=== PATIENT | female | born 1980 | race Caucasian/White ===

== ENCOUNTER 2017-07-08 17:48 | Inpatient (IN) ==
[2017-07-08] MEDS ORDERED: ONDANSETRON 4 MG/2 ML VIAL IV PRN (17:58)
[2017-07-08] MEDS ORDERED: LACTATED RINGERS 1,000 ML IV SCH (18:00)
[2017-07-08] MEDS ORDERED: OXYTOCIN/LR 20 UNIT/1,000 ML BAG IV SCH (18:00)
[2017-07-08 18:35] LABS: Basophils # 0.1 10*3/uL (0.0-0.2); Basophils % 0.5 % (0.0-0.8); Eosinophils % 0.4 % (0.00-10.9); Hematocrit 35.5 VOL% (35.7-47.0); Hemoglobin 11.7 GM/DL (12.0-16.0); Immature Granulocytes % 0.5 %; Immature Granulocytes Absolute 0.06 #; Lymphocytes # 2.8 10*3/uL (1.4-4.0); Mean Corpuscular Hemoglobin 31 PG (27-34); Mean Corpuscular Volume 93.4 FL (87-102); Mean Platelet Volume 13.6 FL (9.6-12.0); Monocytes # 0.7 10*3/uL (0.11-0.8); Monocytes % 6.5 % (1.7-12.7); Neutrophils # 7.4 10*3/uL (1.4-7.4); Neutrophils % 67.1 % (38.7-73.9); Platelet Count 114 T/CUMM (130-400); Red Cell Distribution Width 12.2 % (9.3-17.3)
[2017-07-08] MEDS: BUTORPHANOL 2 MG/ML VIAL IV PRN (23:40)
[2017-07-09] MEDS: BUTORPHANOL 2 MG/ML VIAL IV PRN ×2 (02:12→05:18)
[2017-07-09] MEDS ORDERED: miSOPROStol 200 MCG TABLET ONE (02:15)
[2017-07-09] MEDS ORDERED: METHYLERGONOVINE 0.2 MG/1 ML AMP ONE (02:16)
[2017-07-09] MEDS ORDERED: LIDOCAINE 1% 50 ML VIAL ONE (02:16)
[2017-07-09] MEDS ORDERED: oxyCODONE/ACETAMINOPHEN 5-325 MG TABLET PO PRN ×2 (09:19)
[2017-07-09] MEDS ORDERED: BISACODYL 10 MG SUPP RECTAL PRN (09:19)
[2017-07-09] MEDS ORDERED: ONDANSETRON 4 MG/2 ML VIAL IV PRN (09:19)
[2017-07-09] MEDS ORDERED: LANOLIN 50% CREAM 0.3 OZ TUBE TOP PRN (09:19)
[2017-07-09] MEDS ORDERED: RHO(D) IMMUNE GLOBULIN 300 MCG SYRINGE IM ONE (09:19)
[2017-07-09] MEDS ORDERED: MEASLES/MUMPS/RUBELLA VACCINE 0.5 ML VIAL SUBCUT ONE (09:19)
[2017-07-09] MEDS ORDERED: DIPH/TET/ACEL PERT BOOSTER VACCINE 0.5 ML VIAL IM ONE (09:19)
[2017-07-09] MEDS ORDERED: HYDROCORTISONE 2.5% RECTAL CREAM 30 GM TUBE TOP PRN (09:19)
[2017-07-09] MEDS ORDERED: OXYTOCIN/LR 20 UNIT/1,000 ML BAG IV ONE (09:19)
[2017-07-09] MEDS ORDERED: WITCH HAZEL PADS 100/JAR TOP PRN (09:19)
[2017-07-09] MEDS ORDERED: BENZOCAINE 20%/MENTHOL 0.5% SPRAY 56 GM CAN TOP PRN (09:19)
[2017-07-09] MEDS ORDERED: ACETAMINOPHEN 325 MG TABLET PO PRN (09:19)
[2017-07-09] MEDS: IBUPROFEN 800 MG TABLET PO PRN ×2 (12:44→21:23)
[2017-07-09] MEDS: DOCUSATE SODIUM 100 MG CAPSULE PO SCH (21:24)
[2017-07-10] MEDS: IBUPROFEN 800 MG TABLET PO PRN ×2 (04:07→11:27)
[2017-07-10 06:58] LABS: Basophils # 0.1 10*3/uL (0.0-0.2); Basophils % 0.3 % (0.0-0.8); Eosinophils % 0.2 % (0.00-10.9); Hematocrit 29.2 VOL% (35.7-47.0); Hemoglobin 9.7 GM/DL (12.0-16.0); Immature Granulocytes % 0.8 %; Immature Granulocytes Absolute 0.14 #; Lymphocytes # 3.5 10*3/uL (1.4-4.0); Lymphocytes % 20.1 % (21.3-54.2); Mean Corpuscular HGB Conc 33.2 GM/DL (32-36); Mean Corpuscular Hemoglobin 31 PG (27-34); Mean Corpuscular Volume 93.3 FL (87-102); Mean Platelet Volume 13.1 FL (9.6-12.0); Monocytes # 0.9 10*3/uL (0.11-0.8); Neutrophils # 12.9 10*3/uL (1.4-7.4); Neutrophils % 73.6 % (38.7-73.9); Platelet Count 99 T/CUMM (130-400); Red Blood Count 3.13 MC/CUMM (3.8-5.5); Red Cell Distribution Width 12.6 % (9.3-17.3); White Blood Count 17.5 T/CUMM (4-12)
[2017-07-10 07:55] LABS: Lymphocytes 18 % (20-55); Microcytosis 1+; Segmented Neutrophils 77 % (50-85); Total Cells Counted 100
[2017-07-10 07:56] LABS: Polychromasia Slight
[2017-07-10] MEDS: DOCUSATE SODIUM 100 MG CAPSULE PO SCH ×2 (08:28→20:53)
[2017-07-11 07:35] VITALS: BP 128/82
[2017-07-11] MEDS: DOCUSATE SODIUM 100 MG CAPSULE PO SCH (08:40)
== END 2017-07-11 12:00 | disposition home or self-care (01) | DRG 775 ==
LOC: N.LDOUT 17:48 → N.LD 17:54 → N.OB 07-09 12:18
PROVIDERS: ADMIT Obstetrics & Gynecology; ATTEND Obstetrics & Gynecology

== ENCOUNTER 2019-04-18 01:20 | Inpatient (IN) ==
[2019-04-18] MEDS ORDERED: ONDANSETRON 4 MG/2 ML VIAL IV PRN (01:32)
[2019-04-18] MEDS ORDERED: FAMOTIDINE 20 MG/2 ML VIAL IV ONE (01:35)
[2019-04-18] MEDS ORDERED: PROMETHAZINE 25 MG/1 ML VIAL IM ONE (01:35)
[2019-04-18] MEDS ORDERED: NALOXONE 0.4 MG/ML VIAL IV PRN (01:35)
[2019-04-18] MEDS ORDERED: LACTATED RINGERS 1,000 ML IV ONE (01:35)
[2019-04-18] MEDS ORDERED: diphenhydrAMINE 50 MG/1 ML VIAL IV PRN ×2 (01:35)
[2019-04-18] MEDS ORDERED: ePHEDrine 50 MG/ML AMP IV PRN (01:35)
[2019-04-18] MEDS ORDERED: CITRIC ACID/SODIUM CITRATE 30 ML UDCUP PO ONE (01:35)
[2019-04-18] MEDS ORDERED: hydrOXYzine HCL 25 MG/1 ML VIAL IM PRN (01:35)
[2019-04-18] MEDS ORDERED: ONDANSETRON 4 MG/2 ML VIAL IV ONE (01:35)
[2019-04-18] MEDS ORDERED: CITRIC ACID/SODIUM CITRATE 30 ML UDCUP ONE (01:37)
[2019-04-18] MEDS ORDERED: fentaNYL 2 MCG/ROPIV 0.2% EPID 100 ML EPIDURAL ONE (01:37)
[2019-04-18] MEDS ORDERED: miSOPROStoL 200 MCG TABLET ONE ×2 (01:54→08:30)
[2019-04-18 01:55] LABS: Basophils % 0.3 % (0.0-0.8); Eosinophils # 0.1 10*3/uL (0.0-0.87); Eosinophils % 0.9 % (0.00-10.9); Hematocrit 30.8 VOL% (35.7-47.0); Hemoglobin 9.7 GM/DL (12.0-16.0); Immature Granulocytes % 0.6 %; Immature Granulocytes Absolute 0.07 #; Lymphocytes # 2.9 10*3/uL (1.4-4.0); Lymphocytes % 24.5 % (21.3-54.2); Mean Corpuscular HGB Conc 31.5 GM/DL (32-36); Mean Platelet Volume 12.5 FL (9.6-12.0); Monocytes % 6.4 % (1.7-12.7); Neutrophils % 67.3 % (38.7-73.9); Platelet Count 168 T/CUMM (130-400); Red Blood Count 3.46 MC/CUMM (3.8-5.5); White Blood Count 11.9 T/CUMM (4-12)
[2019-04-18] MEDS ORDERED: METHYLERGONOVINE 0.2 MG/1 ML AMP ONE ×2 (01:55→08:30)
[2019-04-18] MEDS ORDERED: CARBOPROST TROMETHAMINE 250 MCG/ML AMP IM ONE (01:55)
[2019-04-18] MEDS ORDERED: OXYTOCIN/LR 20 UNIT/1,000 ML BAG IV SCH (02:00)
[2019-04-18] MEDS ORDERED: fentaNYL 2 MCG/ROPIV 0.2% EPID 100 ML EPIDURAL SCH (02:00)
[2019-04-18] MEDS: LACTATED RINGERS 1,000 ML IV SCH ×2 (02:35→11:57)
[2019-04-18 06:36] LABS: Apearance,Urine CLEAR (Clear); Bacteria,Urine Occasional /HPF (Few); Bilirubin,Urine Negative (Negative); Blood, Urine Moderate mg/dL (Negative); Glucose,Urine (UA) Negative (Negative); Ketones,Urine Negative (Negative); Mucus,Urine Few /LPF (Occasional); Nitrite,Urine Negative (Negative); Protein,Urine Negative; RBC,Urine 22 /HPF (0-4); Squamous Epithelial Cell,Urine Occasional /HPF (0-10); Urine Color Yellow (Yellow); Urine Specific Gravity 1.021 (1.001-1.035); Urine Urobilinogen < 2.0 EU/DL (0.2-1.0); WBC,Urine <1 /HPF (0-6)
[2019-04-18] MEDS ORDERED: LIDOCAINE 1% 50 ML VIAL ONE (08:30)
[2019-04-18] MEDS ORDERED: oxyCODONE/ACETAMINOPHEN 5-325 MG TABLET PO PRN ×2 (16:17)
[2019-04-18] MEDS: IBUPROFEN 800 MG TABLET PO PRN (16:33)
[2019-04-19 06:19] LABS: Basophils % 0.3 % (0.0-0.8); Eosinophils # 0.1 10*3/uL (0.0-0.87); Eosinophils % 0.7 % (0.00-10.9); Hematocrit 29.5 VOL% (35.7-47.0); Immature Granulocytes % 0.8 %; Lymphocytes # 2.6 10*3/uL (1.4-4.0); Lymphocytes % 22.1 % (21.3-54.2); Mean Corpuscular HGB Conc 30.5 GM/DL (32-36); Mean Corpuscular Volume 90.8 FL (87-102); Mean Platelet Volume 12.4 FL (9.6-12.0); Monocytes % 4.3 % (1.7-12.7); Neutrophils % 71.8 % (38.7-73.9); Platelet Count 146 T/CUMM (130-400); Red Blood Count 3.25 MC/CUMM (3.8-5.5); Red Cell Distribution Width 13.2 % (9.3-17.3); White Blood Count 11.9 T/CUMM (4-12)
[2019-04-19] MEDS: DOCUSATE SODIUM 100 MG CAPSULE PO SCH (21:03)
[2019-04-19] MEDS: IBUPROFEN 800 MG TABLET PO PRN (23:19)
[2019-04-20 10:29] VITALS: BP 123/73
[2019-04-20] MEDS: DOCUSATE SODIUM 100 MG CAPSULE PO SCH (11:01)
== END 2019-04-20 13:50 | disposition home or self-care (01) | DRG 807 ==
LOC: N.LDOUT 01:20 → N.LD 01:21 → N.OB 11:42
PROVIDERS: ADMIT Obstetrics & Gynecology; ATTEND Obstetrics & Gynecology

== ENCOUNTER 2021-03-12 12:50 | Inpatient (IN) ==
[2021-03-12] MEDS ORDERED: ONDANSETRON 4 MG/2 ML VIAL IV PRN ×2 (13:04→20:06)
[2021-03-12] MEDS ORDERED: LACTATED RINGERS 1,000 ML IV PRN (13:04)
[2021-03-12] MEDS ORDERED: MEPERIDINE 50 MG/1 ML VIAL IM PRN (13:04)
[2021-03-12 13:22] LABS: Basophils % 0.5 % (0.0-0.8); Eosinophils # 0.1 10*3/uL (0.0-0.87); Eosinophils % 0.8 % (0.00-10.9); Hematocrit 31.4 VOL% (35.7-47.0); Hemoglobin 9.9 GM/DL (12.0-16.0); Immature Granulocytes % 0.8 %; Immature Granulocytes Absolute 0.05 #; Lymphocytes # 1.8 10*3/uL (1.4-4.0); Mean Corpuscular HGB Conc 31.5 GM/DL (32-36); Mean Platelet Volume 11.8 FL (9.6-12.0); Monocytes % 7.4 % (1.7-12.7); Neutrophils % 63.5 % (38.7-73.9); Platelet Count 153 T/CUMM (130-400); Red Blood Count 3.53 MC/CUMM (3.8-5.5); Red Cell Distribution Width 14.2 % (9.3-17.3); White Blood Count 6.5 T/CUMM (4-12)
[2021-03-12] MEDS ORDERED: OXYTOCIN/LR 20 UNIT/1,000 ML BAG IV SCH (13:30)
[2021-03-12] MEDS ORDERED: LACTATED RINGERS 1,000 ML IV SCH (13:30)
[2021-03-12] MEDS ORDERED: ePHEDrine 50 MG/ML VIAL IV PRN (13:36)
[2021-03-12] MEDS ORDERED: diphenhydrAMINE 50 MG/1 ML VIAL IV PRN ×2 (13:36)
[2021-03-12] MEDS ORDERED: NALOXONE 0.4 MG/ML VIAL IV PRN (13:36)
[2021-03-12] MEDS ORDERED: PROMETHAZINE 25 MG/1 ML VIAL IM ONE (13:36)
[2021-03-12] MEDS ORDERED: FAMOTIDINE 20 MG/2 ML VIAL IV ONE (13:36)
[2021-03-12] MEDS ORDERED: ONDANSETRON 4 MG/2 ML VIAL IV ONE (13:36)
[2021-03-12] MEDS ORDERED: hydrOXYzine HCL 25 MG/1 ML VIAL IM PRN (13:36)
[2021-03-12] MEDS ORDERED: CITRIC ACID/SODIUM CITRATE 30 ML UDCUP PO ONE (13:36)
[2021-03-12] MEDS ORDERED: fentaNYL 2 MCG/ROPIV 0.2% EPID 100 ML EPIDURAL SCH (14:00)
[2021-03-12] MEDS ORDERED: miSOPROStoL 200 MCG TABLET ONE (19:31)
[2021-03-12] MEDS ORDERED: SODIUM CHLORIDE 0.9% 0 ML IV ONE (19:32)
[2021-03-12] MEDS ORDERED: TRANEXAMIC ACID 1,000 MG/10 ML VIAL ONE (19:32)
[2021-03-12] MEDS ORDERED: OXYTOCIN/LR 20 UNIT/1,000 ML BAG IV ONE ×2 (19:32→20:06)
[2021-03-12] MEDS ORDERED: METHYLERGONOVINE 0.2 MG/1 ML AMP ONE (19:32)
[2021-03-12] MEDS ORDERED: CARBOPROST TROMETHAMINE 250 MCG/ML AMP IM ONE (19:33)
[2021-03-12] MEDS ORDERED: DIPH/TET/ACEL PERT BOOSTER VACCINE 0.5 ML VIAL IM ONE (20:06)
[2021-03-12] MEDS ORDERED: MEASLES/MUMPS/RUBELLA VACCINE 0.5 ML VIAL SUBCUT ONE (20:06)
[2021-03-12] MEDS ORDERED: BENZOCAINE 20%/MENTHOL 0.5% SPRAY 56 GM CAN TOP PRN (20:06)
[2021-03-12] MEDS ORDERED: ACETAMINOPHEN 325 MG TABLET PO PRN (20:06)
[2021-03-12] MEDS ORDERED: HYDROCORTISONE 2.5% RECTAL CREAM 30 GM TUBE TOP PRN (20:06)
[2021-03-12] MEDS ORDERED: WITCH HAZEL PADS 100/JAR TOP PRN (20:06)
[2021-03-12] MEDS ORDERED: LANOLIN 50% CREAM 0.3 OZ TUBE TOP PRN (20:06)
[2021-03-12] MEDS ORDERED: BISACODYL 10 MG SUPP RECTAL PRN (20:06)
[2021-03-12] MEDS ORDERED: RHO(D) IMMUNE GLOBULIN 300 MCG SYRINGE IM ONE (20:06)
[2021-03-12] MEDS ORDERED: oxyCODONE/ACETAMINOPHEN 5-325 MG TABLET PO PRN ×2 (20:06)
[2021-03-12 20:17] LABS: Cord Venous Blood HCO3 23.6 MMOL/L; Cord Venous Blood PCO2 42.5 MMHG; Cord Venous Blood PO2 20.8
[2021-03-12] MEDS: DOCUSATE SODIUM 100 MG CAPSULE PO SCH (22:33)
[2021-03-13] MEDS: IBUPROFEN 800 MG TABLET PO PRN ×3 (03:24→15:01)
[2021-03-13 05:27] LABS: Basophils % 0.2 % (0.0-0.8); Eosinophils % 0.4 % (0.00-10.9); Hematocrit 28.8 VOL% (35.7-47.0); Immature Granulocytes % 0.7 %; Immature Granulocytes Absolute 0.08 #; Lymphocytes # 1.7 10*3/uL (1.4-4.0); Lymphocytes % 14.8 % (21.3-54.2); Mean Corpuscular HGB Conc 31.3 GM/DL (32-36); Mean Corpuscular Volume 89.2 FL (87-102); Mean Platelet Volume 12.5 FL (9.6-12.0); Monocytes % 5.6 % (1.7-12.7); Neutrophils % 78.3 % (38.7-73.9); Platelet Count 117 T/CUMM (130-400); Red Blood Count 3.23 MC/CUMM (3.8-5.5); Red Cell Distribution Width 14.2 % (9.3-17.3); White Blood Count 11.2 T/CUMM (4-12)
[2021-03-13] MEDS: DOCUSATE SODIUM 100 MG CAPSULE PO SCH ×2 (09:01→20:59)
[2021-03-14 09:37] VITALS: BP 124/80
== END 2021-03-14 12:54 | disposition home or self-care (01) | DRG 807 ==
LOC: N.LD 12:50 → N.OB 22:45
PROVIDERS: ADMIT Obstetrics & Gynecology; ATTEND Obstetrics & Gynecology